=== PATIENT | female | born 1990 | race Caucasian/White ===

== ENCOUNTER 2018-03-29 15:06 | Inpatient (IN) ==
[2018-03-29] MEDS ORDERED: fentaNYL Citrate Inj 100 MCG/2 ML Ampul IV.PUSH PRN ×2 (15:45)
[2018-03-29] MEDS ORDERED: Sod Chloride 0.9% Inj 1,000 ML IV.CONT PRN (15:45)
[2018-03-29] MEDS ORDERED: Sodium Chlor 0.9% Inj 500 ML IV.SIG PRN (15:45)
[2018-03-29] MEDS ORDERED: Naloxone Inj 0.4 MG/ML Vial IV.PUSH PRN (15:45)
[2018-03-29] MEDS ORDERED: Citric Acid/Sodium Citrate Liq 30 ML UDC PO SCH (15:45)
[2018-03-29] MEDS ORDERED: Oxytocin 30 Units/500ml Premix 30 UNITS/500 ML BAG IV.SIG ONE (15:45)
[2018-03-29] MEDS ORDERED: Magnesium Sulfate Inj 4 GM in Sodium Chlor 0.9% Inj 92 ML IV.SIG ONE ×2 (15:49→17:00)
--- NOTE | 2018-03-29 15:50 | ED ---
History of Present Illness Primary Care Physician: NOT REQUIRED Chief Complaint: "high blood pressure" History of Present Illness: 27-year-old at 38 weeks and 3 days who presents with a chief complaint of hypertension. [facility]. She reports that she has had normal blood pressures throughout her but her blood pressure was 130/80 at her OB appointment 2 weeks ago. She has been monitoring her pressures at home and they have slowly increased to 140s over 90s. Her highest recorded home blood pressure was 126/105. Over the same period, she has had right-sided intermittent headaches, severe lower extremity edema, shortness of breath, changes in her vision, nausea, vomiting, diarrhea. She denies any right upper quadrant pain, contractions, fluid leakage , vaginal bleeding. She is feeling baby move. She had a 24-hour urine protein that was completed yesterday. Her 24-hour protein was 338 with a PC ratio of 0.3. Her platelets were normal at 157. Her LFTs were normal with AST at 20 and ALT at 14. Uric acid was elevated at 7.1. Patient had an ultrasound on March 19 and estimated weight was 6 pounds 4 ounces. She is GBS negative. Past medical history: Patient denies any medical history. Past surgical history: Denies Allergies: No known drug allergies Family history: Mother and father alive and well Social history: Patient was smoking tobacco and marijuana at the beginning of her . She reports that she quit around 8 weeks . She denies any alcohol use or other illicit drugs during the . Weeks Gestation:: 38 Para: 0 : 2 - Inpatient Certification Plans for Post Hospital Care: Home Review of Systems All other systems reviewed negative except as stated in HPI PMFSH - History History Provided By: Patient - Medical / Surgical Hx Neg / Unobtainable Medical Problems Denied: Yes Surgical History: No Previous Surgery - Social History I have reviewed the patient's Social History: Yes Medications and Allergies Allergies Allergy/AdvReac Type Severity Reaction Status Date / Time No Known Allergies Allergy Verified 03/29/18 16:19 Exam Vital signs: Vital Signs 03/29/18 15:25 Temperature 98.3 F Pulse Rate 75 Blood Pressure 149/96 H Narrative: GENERAL: Well-nourished, well-developed patient. SKIN: Warm and dry. HEAD: Normocephalic and atraumatic. EYES: No scleral icterus. No injection or drainage. ENT: No nasal drainage noted. Mucous membranes pink. Airway patent. NECK: Supple, trachea midline. No JVD. CARDIOVASCULAR: Regular rate and rhythm without murmurs, gallops, or rubs. RESPIRATORY: Breath sounds equal bilaterally. No accessory muscle use. ABDOMEN/GI: Abdomen soft, non-tender, bowel sounds present, no rebound, no guarding Gravid to 38 weeks size GENITOURINARY: External Genitalia: intact and edematous Cervix: Anterior Dilatation: 4 Effacement: 80 Station: -2 Presentation: Vertex Membranes: Intact Uterine Contractions: None FHT's: Category: 1 Baseline: 135 Reactive: yes Variability: Moderate Decels: None EXTREMITIES: +2 pitting edema to mid thigh. BACK: Nontender without obvious deformity. No CVA tenderness. NEUROLOGICAL: Clonus noted bilateral lower extremities. Awake. Alert and oriented x3 Assessment and Plan - Diagnosis (1) Preeclampsia Code(s): O14.90 - Unspecified pre-eclampsia, unspecified trimester Status: Acute Qualifiers: Trimester: third trimester Qualified Code(s): O14.93 - Unspecified pre- eclampsia, third trimester (2) 38 weeks gestation of Code(s): Z3A.38 - 38 weeks gestation of Status: Acute - Plan 27-year-old at 38 weeks and 3 days who is preeclamptic. Her 24-hour urine protein was 338. Her uric acid was elevated at 7.1. Her blood pressure upon evaluation was 149/96 and she does have concerning features including headache and clonus. -Admit to Labor and Delivery -Preeclampsia labs -Monitor BP -Start mag sulfate and follow protocol -Will rupture membranes and begin pitocin -Anticipate vaginal delivery Discharge Plan - Physicians Team Primary Care Provider: NOT REQUIRED, Attending Provider: Macey Mendez
[2018-03-29] MEDS ORDERED: Magnesium Sulfate Inj 2 GM in Sodium Chlor 0.9% Inj 96 ML IV.SIG ONE ×2 (16:04→17:20)
--- NOTE | 2018-03-29 16:12 | P.HPOB ---
OB - ED Note Patient Name: Adilene Hoff Date of : 89 Patient Status: Inpatient Attending Provider: Macey Mendez Date: 03/29/18 15:41 Initialization Date: 03/29/18 15:41 History of Present Illness Primary Care Physician: NOT REQUIRED Chief Complaint: "high blood pressure" History of Present Illness: 27-year-old at 38 weeks and 3 days who presents with a chief complaint of hypertension. [facility] she reports that she has had normal blood pressures throughout her but her blood pressure was 130/80 at her OB appointment 2 weeks ago. She has been monitoring her pressures at home and they have slowly increased to 140s over 90s. Her highest recorded home blood pressure was 126/105. Over the same period, she has had right-sided intermittent headaches, severe lower extremity edema, shortness of breath, changes in her vision, nausea, vomiting, diarrhea. She denies any right upper quadrant pain, contractions, fluid leakage , vaginal bleeding. She is feeling baby move. She had a 24-hour urine protein that was completed yesterday. Her 24-hour protein was 338 with a PC ratio of 0.3. Her platelets were normal at 157. Her LFTs were normal with AST at 20 and ALT at 14. Uric acid was elevated at 7.1. Patient had an ultrasound on March 19 and estimated weight was 6 pounds 4 ounces. She is GBS negative. Past medical history: Patient denies any medical history. Past surgical history: Denies Allergies: No known drug allergies Family history: Mother and father alive and well Social history: Patient was smoking tobacco and marijuana at the beginning of her . She reports that she quit around 8 weeks . She denies any alcohol use or other illicit drugs during the . Weeks Gestation:: 38 Para: 0 : 2 Review of Systems All other systems reviewed negative except as stated in HPI PMFSH - History History Provided By: Patient - Medical / Surgical Hx Neg / Unobtainable Medical Problems Denied: Yes Surgical History: No Previous Surgery - Social History I have reviewed the patient's Social History: Yes Medications and Allergies Allergies Allergy/AdvReac Type Severity Reaction Status Date / Time No Known Allergies Uncoded 10/30/09 13:10 Exam Vital signs: Vital Signs 03/29/18 15:25 Temperature 98.3 F Pulse Rate 75 Blood Pressure 149/96 H Narrative: GENERAL: Well-nourished, well-developed patient. SKIN: Warm and dry. HEAD: Normocephalic and atraumatic. EYES: No scleral icterus. No injection or drainage. ENT: No nasal drainage noted. Mucous membranes pink. Airway patent. NECK: Supple, trachea midline. No JVD. CARDIOVASCULAR: Regular rate and rhythm without murmurs, gallops, or rubs. RESPIRATORY: Breath sounds equal bilaterally. No accessory muscle use. ABDOMEN/GI: Abdomen soft, non-tender, bowel sounds present, no rebound, no guarding Gravid to 38 weeks size GENITOURINARY: External Genitalia: intact and edematous Cervix: Anterior Dilatation: 4 Effacement: 80 Station: -2 Presentation: Vertex Membranes: Intact Uterine Contractions: None FHT's: Category: 1 Baseline: 135 Reactive: yes Variability: Moderate Decels: None EXTREMITIES: +2 pitting edema to mid thigh. BACK: Nontender without obvious deformity. No CVA tenderness. NEUROLOGICAL: Clonus noted bilateral lower extremities. Awake. Alert and oriented x3 Assessment and Plan - Diagnosis (1) Preeclampsia Code(s): O14.90 - Unspecified pre-eclampsia, unspecified trimester Status: Acute (2) 38 weeks gestation of Code(s): Z3A.38 - 38 weeks gestation of Status: Acute - Plan 27-year-old at 38 weeks and 3 days who is preeclamptic. Her 24-hour urine protein was 338. Her uric acid was elevated at 7.1. Her blood pressure upon evaluation was 149/96 and she does have concerning features including headache and clonus. -Admit to Labor and Delivery -Preeclampsia labs -Monitor BP -Start mag sulfate and follow protocol -Will rupture membranes and begin pitocin -Anticipate vaginal delivery Discharge Plan - Discharge Disposition Patient Disposition: 02 [place] [facility] [place] Condition Condition: Stable - Physicians Team Primary Care Provider: NOT REQUIRED, Attending Provider: Macey Mendez - Rxs /Orders / Referrals /Forms Referrals: NOT REQUIRED, [Primary Care Provider] - See Instructions
[2018-03-29] MEDS ORDERED: Mag Sulf/Water 4 gm/100 ml 100 ML IV.SIG ONE (17:00)
[2018-03-29] MEDS ORDERED: Mag Sulf/Water 40 gm/1000 ml 40 GM/1,000 ML BAG IV.CONT ONE (17:01)
[2018-03-29 17:19] LABS: Baso % (Auto) 0.4 % (0.0-2.0); Eos % (Auto) 0.5 % (0.0-4.0); Hematocrit 36.8 % (35.0-46.0); Hemoglobin 13.1 gm/dL (11.6-15.3); Lymph # (Auto) 2.1 th/mm3 (1.0-4.8); Lymph % (Auto) 23.8 % (9.0-44.0); Mean Corpuscular HGB Conc 35.7 % (32.0-36.0); Mean Corpuscular Hemoglobin 34.6 pg (27.0-34.0); Mean Corpuscular Volume 97.1 fL (80.0-100.0); Mean Platelet Volume 10.3 fL (7.0-11.0); Mono # (Auto) 0.6 th/mm3 (0.0-0.9); Mono % (Auto) 6.5 % (0.0-8.0); Neut # (Auto) 5.9 th/mm3 (1.8-7.7); Neut % (Auto) 68.8 % (16.0-70.0); Platelet Count 145 th/mm3 (150-450); Red Blood Count 3.79 mil/mm3 (4.00-5.30); Red Cell Distribution Width 13.1 % (11.6-17.2); White Blood Count 8.6 th/mm3 (4.0-11.0)
[2018-03-29 17:48] LABS: Bacteria,Urine Occasional /hpf; Bilirubin,Urine Negative (Negative); Clarity,Urine Hazy (Clear); Color,Urine Yellow (Yellw/Straw); Glucose,Urine (UA) Negative (Negative); Leukocyte Esterase,Urine Small (Negative); Mucus,Urine Few /lpf (Occasional); Nitrite,Urine Negative (Negative); Specific Gravity,Urine 1.016 (1.002-1.035); Squamous Epithelial Cell,Urine 16 /hpf (0-5)
[2018-03-29 17:51] LABS: Uric Acid 6.4 mg/dl (2.6-6.0)
[2018-03-29 18:18] LABS: Protein/Creatinine Ratio,Urine 0.51 (0.00-0.14); Total Protein,Urine Random 70.7 mg/dL (0-11.8)
[2018-03-29] MEDS ORDERED: fentaNYL 2MCG-Bupiv 0.125% Epi 150 ML EPIDURAL ONE (19:52)
[2018-03-29] MEDS ORDERED: Oxytocin 30 Units/500ml Premix 30 UNITS/500 ML BAG IV.SIG PRN (22:00)
[2018-03-29] MEDS ORDERED: Lidocaine 1% Inj 50 ML Vial ONE (23:18)
[2018-03-30] MEDS ORDERED: Oxytocin 30 Units/500ml Premix 30 UNITS/500 ML BAG IV.CONT PRN (00:36)
[2018-03-30] MEDS ORDERED: Zolpidem Tartrate 5 MG Tablet PO PRN (00:36)
[2018-03-30] MEDS ORDERED: Acetaminophen 325 MG Tablet PO PRN (00:36)
[2018-03-30] MEDS ORDERED: Bisacodyl 10 MG Supp RECTAL PRN (00:36)
[2018-03-30] MEDS ORDERED: Naloxone Inj 0.4 MG/ML Vial IV.PUSH PRN (00:36)
--- NOTE | 2018-03-30 00:44 | P.OBDELI ---
Weeks Gestation: 38 Patient Started Active Labor: Yes Medical Induction of Labor: Yes (Pre eclampsia) Medical Induction Start Date: 03/29/18 Artificial Rupture of Membrane: Yes Artificial ROM Date: 03/29/18 Anesthesia: Epidural Episiotomy: none Vaginal Delivery: Normal Nuchal Cord: None Delayed Cord Clamping (45 sec): Yes Placenta: Spontaneous delivery Laceration: 1 deg (repaired with 3-0 Vicryl) Repair: Vicryl running Estimated blood loss (mL): 200 Infant: Male Infant Male A Infant Delivery Date: 03/30/18 Delivery Time: 00:24 Weight: 3 kg score (1 min): 7 score (5 min): 8 Additional Information: Will cont MgSO4 x 24 hrs
[2018-03-30] MEDS: Benzocaine 20% Top Spray 60 ML Can TOPICAL PRN (05:49)
[2018-03-30] MEDS: Witch Hazel 50%/Glyderin 12.5% 40 Pad Jar RECTAL PRN (05:49)
[2018-03-30] MEDS ORDERED: Diphtheria/Tetanus/Pertussis Vaccine Inj 0.5 ML Syringe IM ONE (06:00)
[2018-03-30] MEDS ORDERED: Measles/Mumps/Rubella Vaccine Inj 0.5 ML Vial SQ ONE (06:00)
[2018-03-30] MEDS ORDERED: Mag Sulf/Water 40 gm/1000 ml 40 GM/1,000 ML BAG IV.CONT SCH (14:04)
[2018-03-30] MEDS ORDERED: Magnesium Sulfate Inj 2 GM in Sodium Chlor 0.9% Inj 96 ML IV.SIG ONE (16:00)
[2018-03-30] MEDS: Senna/Docusate Sodium 8.6/50 MG Tablet PO SCH ×2 (20:08→23:08)
[2018-03-31] MEDS: Senna/Docusate Sodium 8.6/50 MG Tablet PO SCH (08:56)
--- NOTE | 2018-03-31 09:21 | P.PNOB ---
Subjective Post day: 1 Interval history: day # 1. AFVSS overnight. Pain well-controlled. Decreased lochia. Denies dysuria. No breast tenderness. She is feeding the baby via breast. Appetite good. No nausea or vomiting. + flatus. no bowel movement. Ambulating well. Denies calf pain, shortness of breath, or cough. No headache , no blurry vision. Otherwise, she is doing well this morning and has no other complaints. Objective Vital Signs/I&O: Vital Signs 03/30/18 09:27 03/30/18 09:30 03/30/18 10:30 Temperature Pulse Rate 80 80 Respiratory Rate 18 Blood Pressure 126/73 125/76 03/30/18 11:35 03/30/18 13:00 03/30/18 13:30 Temperature 97.9 F Pulse Rate 79 82 79 Respiratory Rate 18 18 Blood Pressure 129/69 126/69 132/78 03/30/18 14:00 03/30/18 14:30 03/30/18 15:00 Temperature Pulse Rate 80 Respiratory Rate 18 18 Blood Pressure 142/66 H 03/30/18 15:30 03/30/18 16:00 03/30/18 17:00 Temperature Pulse Rate 110 H 92 H Respiratory Rate 18 18 Blood Pressure 124/68 120/67 03/30/18 17:20 03/30/18 18:30 03/30/18 19:30 Temperature 97.8 F Pulse Rate 99 H 96 H 88 Respiratory Rate 18 Blood Pressure 122/79 127/78 127/81 03/30/18 20:00 03/30/18 21:00 03/30/18 23:00 Temperature 98.5 F Pulse Rate 92 H 89 Respiratory Rate 18 18 Blood Pressure 124/62 111/59 L 03/31/18 00:00 03/31/18 00:01 03/31/18 01:00 Temperature 98.6 F Pulse Rate 103 H Respiratory Rate 16 18 Blood Pressure 03/31/18 02:51 03/31/18 06:00 03/31/18 06:57 Temperature 98.8 F Pulse Rate 70 Respiratory Rate 18 16 18 Blood Pressure 143/77 H 03/31/18 06:58 Temperature Pulse Rate 70 Respiratory Rate Blood Pressure 142/83 H Result Diagrams: 03/29/18 16:10 Objective Remarks: GENERAL: Well-nourished, well-developed patient. CARDIOVASCULAR: Regular rate and rhythm without murmurs, gallops, or rubs. RESPIRATORY: Breath sounds equal bilaterally. No accessory muscle use. ABDOMEN/GI: Abdomen soft, non-tender. Fundus: Firm, non-tender at umbilicus. GENITOURINARY: Light to moderate bleeding. EXTREMITIES: No cyanosis or edema, non-tender, without signs of DVT. Medications and IVs: Active Medications Acetaminophen (Tylenol) 650 mg PO Q4H PRN PRN Reason: PAIN SCALE 1 TO 2 Hydrocodone Bitart/Acetaminophen ([place] 5/325) 1 tab PO Q4H PRN PRN Reason: PAIN SCALE 6 TO 10 Al Hydroxide/Mg Hydroxide (Milk Of Magnesia Liq) 30 ml PO Q12H PRN PRN Reason: Mild Constipation Benzocaine (Americaine 20% Top [place]) 1 spray TOPICAL Q4H PRN PRN Reason: For Perineum Discomfort Last Admin: 03/30/18 05:49 Dose: 1 spray Bisacodyl (Dulcolax Supp) 10 mg RECTAL DAILY PRN PRN Reason: SEVERE CONSITIPATION Citric Acid/Sodium Citrate (Sodium Citrate/Citric Acid Liq) 30 ml PO CODING CLERK [facility] Stop: 04/02/18 15:44 Fentanyl Citrate (Fentanyl Inj) 50 mcg IV.PUSH Q1H PRN PRN Reason: Pain Scale 3 - 5 Fentanyl Citrate (Fentanyl Inj) 100 mcg IV.PUSH Q1H PRN PRN Reason: PAIN SCALE 6 TO 10 Lactated Ringer's (Lr 1000 Ml Inj) 1,000 mls @ 75 mls/hr IV.CONT .[id number] [facility] Last Admin: 03/31/18 08:57 Dose: Not Given Sodium Chloride (Ns Inj) 500 mls @ 1,000 mls/hr IV.SIG UNSCH PRN PRN Reason: SEE LABEL COMMENTS Sodium Chloride (Ns Inj) 1,000 mls @ 100 mls/hr IV.CONT .Q10H PRN PRN Reason: SEE LABEL COMMENTS Lactated Ringer's (Lr 1000 Ml Inj) 1,000 mls @ 3,000 mls/hr IV.SIG UNSCH PRN PRN Reason: compromise or epidural Last Admin: 03/29/18 19:57 Dose: 3,000 mls/hr Oxytocin (Pitocin 30 Units/Ns 500 Ml Premix) 30 units in 500 mls @ 2 mls/hr IV.SIG TITRATE PRN; Protocol PRN Reason: For induction of labor Last Admin: 03/29/18 23:15 Dose: 2 milliunit/min, 2 mls/hr Oxytocin (Pitocin 30 Units/Ns 500 Ml Premix) 30 units in 500 mls @ 100 mls/hr IV.CONT UNSCH PRN PRN Reason: Heavy bleeding Magnesium Sulfate (Magnesium Sulfate/Water 40 Gm/1000 Ml Premix) 40 gm in 1, 000 mls @ 25 mls/hr IV.CONT Q24H [facility] Last Admin: 03/30/18 23:07 Dose: Not Given Ibuprofen (Motrin) 800 mg PO Q8H PRN PRN Reason: For Cramping Last Admin: 03/31/18 00:51 Dose: 800 mg Lactulose (Lactulose Liq) 30 ml PO DAILY PRN PRN Reason: SEVERE CONSITIPATION Lidocaine HCl (Xylocaine 1% Inj) 0.1 ml I-DERMAL PRN PRN PRN Reason: For IV start Stop: 04/01/18 15:44 Lidocaine HCl (Xylocaine 1% Inj) 10 ml INFILTRATN PRN PRN PRN Reason: For episiotomy repair Stop: 03/31/18 15:44 Mineral Oil (Muri-Lube Oil) 10 ml TOPICAL PRN PRN PRN Reason: PRN perineal massage Naloxone HCl (Narcan Inj) 0.1 mg IV.PUSH Q2M PRN PRN Reason: for opiate reversal Naloxone HCl (Narcan Inj) 0.1 mg IV.PUSH Q2M PRN PRN Reason: for opiate reversal Ondansetron HCl (Zofran Inj) 4 mg IV.PUSH Q6H PRN PRN Reason: NAUSEA OR VOMITING Last Admin: 03/29/18 21:03 Dose: 4 mg Senna/Docusate Sodium (Ayse-Colace) 1 tab PO BID [facility] Last Admin: 03/31/18 08:56 Dose: 1 tab Sennosides (Senokot) 17.2 mg PO Q12H PRN PRN Reason: Moderate Constipation Sodium Chloride (Ns Flush) 2 ml IV.FLUSH PRN PRN PRN Reason: FLUSH AFTER USING IV ACCESS Sodium Chloride (Ns Flush) 2 ml IV.FLUSH BID [facility] Last Admin: 03/31/18 08:56 Dose: 2 ml Witch Doreen/Glycerin (Tucks Pads) 1 applicatio RECTAL QID PRN PRN Reason: HEMORRHOIDS Last Admin: 03/30/18 05:49 Dose: 1 applicatio Zolpidem Tartrate (Ambien) 5 mg PO HS PRN PRN Reason: SLEEP Assessment and Plan - Diagnosis (1) Preeclampsia Code(s): O14.90 - Unspecified pre-eclampsia, unspecified trimester Status: Acute (2) 38 weeks gestation of Code(s): Z3A.38 - 38 weeks gestation of Status: Acute - Plan 27-year-old delivered at 38 weeks and 3 days due to preeclampsia, s/p . Her 24-hour urine protein upon admission was 338. Her uric acid was elevated at 7.1. Her blood pressure upon evaluation was 149/96 and she does have concerning features including headache and clonus. -mag sulfate discontinue ~midnight this morning -BPs in the 140/70s-80s -Continue routine care. -Motrin PRN pain. -Encouraged OOB. Advised pelvic rest for 6 wks. -Will need a f/u appt. within 6 wks. -Re: ctrl, she would like OCPs. -D/c likely tomorrow. wdw OB attending, Dr. Javier (1) Preeclampsia Qualifiers: Trimester: third trimester Qualified Code(s): O14.93 - Unspecified pre- eclampsia, third trimester
[2018-03-31] MEDS: Benzocaine 20% Top Spray 60 ML Can TOPICAL PRN (18:34)
[2018-03-31] MEDS: Witch Hazel 50%/Glyderin 12.5% 40 Pad Jar RECTAL PRN (18:34)
[2018-04-01] MEDS: Senna/Docusate Sodium 8.6/50 MG Tablet PO SCH (01:53)
[2018-04-01 02:03] VITALS: RESP 18
--- NOTE | 2018-04-01 08:13 | P.PNOB ---
Subjective Post day: 2 Interval history: day # 2. AFVSS overnight. Pain well-controlled. Decreased lochia. Denies dysuria. No breast tenderness. She is feeding the baby via breast. Appetite good. No nausea or vomiting. + flatus. no bowel movement. Ambulating well. Denies calf pain, shortness of breath, or cough. No headache , no blurry vision. She does report labial swelling. Otherwise, she is doing well this morning and has no other complaints. Objective Vital Signs/I&O: Vital Signs 03/31/18 09:02 03/31/18 09:59 03/31/18 10:59 Temperature Pulse Rate 100 H 72 Respiratory Rate 18 18 Blood Pressure 145/81 H 136/77 03/31/18 14:15 03/31/18 20:30 04/01/18 00:00 Temperature 98.1 F 98.4 F Pulse Rate 80 73 75 Respiratory Rate 16 20 18 Blood Pressure 131/86 119/82 141/77 H Result Diagrams: 03/29/18 16:10 Objective Remarks: GENERAL: Well-nourished, well-developed patient. CARDIOVASCULAR: Regular rate and rhythm without murmurs, gallops, or rubs. RESPIRATORY: Breath sounds equal bilaterally. No accessory muscle use. ABDOMEN/GI: Abdomen soft, non-tender. Fundus: Firm, non-tender at umbilicus. GENITOURINARY: Light to moderate bleeding. Mild labial swelling. EXTREMITIES: +1 pedal edema, non-tender, without signs of DVT. Medications and IVs: Active Medications Acetaminophen (Tylenol) 650 mg PO Q4H PRN PRN Reason: PAIN SCALE 1 TO 2 Hydrocodone Bitart/Acetaminophen ([place] 5/325) 1 tab PO Q4H PRN PRN Reason: PAIN SCALE 6 TO 10 Al Hydroxide/Mg Hydroxide (Milk Of Magnesia Liq) 30 ml PO Q12H PRN PRN Reason: Mild Constipation Benzocaine (Americaine 20% Top [place]) 1 spray TOPICAL Q4H PRN PRN Reason: For Perineum Discomfort Last Admin: 03/31/18 18:34 Dose: 1 spray Bisacodyl (Dulcolax Supp) 10 mg RECTAL DAILY PRN PRN Reason: SEVERE CONSITIPATION Citric Acid/Sodium Citrate (Sodium Citrate/Citric Acid Liq) 30 ml PO ROUGHER OPERATOR [facility] Stop: 04/02/18 15:44 Fentanyl Citrate (Fentanyl Inj) 50 mcg IV.PUSH Q1H PRN PRN Reason: Pain Scale 3 - 5 Fentanyl Citrate (Fentanyl Inj) 100 mcg IV.PUSH Q1H PRN PRN Reason: PAIN SCALE 6 TO 10 Lactated Ringer's (Lr 1000 Ml Inj) 1,000 mls @ 75 mls/hr IV.CONT .[id number] [facility] Last Admin: 03/31/18 16:38 Dose: Not Given Sodium Chloride (Ns Inj) 500 mls @ 1,000 mls/hr IV.SIG UNSCH PRN PRN Reason: SEE LABEL COMMENTS Sodium Chloride (Ns Inj) 1,000 mls @ 100 mls/hr IV.CONT .Q10H PRN PRN Reason: SEE LABEL COMMENTS Lactated Ringer's (Lr 1000 Ml Inj) 1,000 mls @ 3,000 mls/hr IV.SIG UNSCH PRN PRN Reason: compromise or epidural Last Admin: 03/29/18 19:57 Dose: 3,000 mls/hr Oxytocin (Pitocin 30 Units/Ns 500 Ml Premix) 30 units in 500 mls @ 2 mls/hr IV.SIG TITRATE PRN; Protocol PRN Reason: For induction of labor Last Admin: 03/29/18 23:15 Dose: 2 milliunit/min, 2 mls/hr Oxytocin (Pitocin 30 Units/Ns 500 Ml Premix) 30 units in 500 mls @ 100 mls/hr IV.CONT UNSCH PRN PRN Reason: Heavy bleeding Ibuprofen (Motrin) 800 mg PO Q8H PRN PRN Reason: For Cramping Last Admin: 03/31/18 00:51 Dose: 800 mg Lactulose (Lactulose Liq) 30 ml PO DAILY PRN PRN Reason: SEVERE CONSITIPATION Lidocaine HCl (Xylocaine 1% Inj) 0.1 ml I-DERMAL PRN PRN PRN Reason: For IV start Stop: 04/01/18 15:44 Mineral Oil (Muri-Lube Oil) 10 ml TOPICAL PRN PRN PRN Reason: PRN perineal massage Naloxone HCl (Narcan Inj) 0.1 mg IV.PUSH Q2M PRN PRN Reason: for opiate reversal Naloxone HCl (Narcan Inj) 0.1 mg IV.PUSH Q2M PRN PRN Reason: for opiate reversal Ondansetron HCl (Zofran Inj) 4 mg IV.PUSH Q6H PRN PRN Reason: NAUSEA OR VOMITING Last Admin: 03/29/18 21:03 Dose: 4 mg Senna/Docusate Sodium (Ayse-Colace) 1 tab PO BID [facility] Last Admin: 04/01/18 01:53 Dose: Not Given Sennosides (Senokot) 17.2 mg PO Q12H PRN PRN Reason: Moderate Constipation Sodium Chloride (Ns Flush) 2 ml IV.FLUSH PRN PRN PRN Reason: FLUSH AFTER USING IV ACCESS Sodium Chloride (Ns Flush) 2 ml IV.FLUSH BID [facility] Last Admin: 03/31/18 21:00 Dose: 2 ml Witch Doreen/Glycerin (Tucks Pads) 1 applicatio RECTAL QID PRN PRN Reason: HEMORRHOIDS Last Admin: 03/31/18 18:34 Dose: 1 applicatio Zolpidem Tartrate (Ambien) 5 mg PO HS PRN PRN Reason: SLEEP Assessment and Plan - Diagnosis (1) Preeclampsia Code(s): O14.90 - Unspecified pre-eclampsia, unspecified trimester Status: Acute (2) Vaginal delivery Code(s): O80 - Encounter for full-term uncomplicated delivery Status: Acute - Plan 27-year-old delivered at 38 weeks and 3 days due to preeclampsia, s/p PP#2. Her 24-hour urine protein upon admission was 338. Her uric acid was elevated at 7.1. Her blood pressure upon evaluation was 149/96 and she does have concerning features including headache and clonus. -s/p mag sulfate discontinued 03/31 -BPs 119/82 -Continue routine care. -Motrin PRN pain. -Encouraged OOB. Advised pelvic rest for 6 wks. -Will keep f/u appointment on SundayApril 03 -Re: ctrl, she would like OCPs. -D/c today. wdw OB attending, Dr. Jarvis (1) Preeclampsia Qualifiers: Trimester: third trimester Qualified Code(s): O14.93 - Unspecified pre- eclampsia, third trimester
[2018-04-01 08:33] VITALS: BP 137/80; PULSE 64; TEMP 98
== END 2018-04-01 14:50 | disposition home or self-care (01) ==
LOC: HOBED 15:06 → H2E 16:05 → H1EA 03-31 14:06
PROVIDERS: ADMIT Obstetrics & Gynecology; ATTEND Obstetrics & Gynecology